=== PATIENT | male | born 1975 ===

== ENCOUNTER 2025-01-23 06:10 | Day surgery (SDC) | payer OTHER, SELFPAY ==
[2025-01-23 07:27] LABS: Glucose - Point of Care 135 mg/dl (70-99)
== END 2025-01-23 08:28 | disposition home or self-care (01) ==
LOC: GI 06:10
PROVIDERS: ATTENDING PHYSICIAN Internal Medicine Gastroenterology
DX: Z12.11 Encounter for screening for malignant neoplasm of colon (principal); K64.8 Other hemorrhoids; D12.4 Benign neoplasm of descending colon; Z83.719 Family history of colon polyps, unspecified
CPT/HCPCS: 45380; 82962; 88305